=== PATIENT | male | born 1980 | race Caucasian/White ===

== ENCOUNTER 2022-07-27 14:21 | Emergency (ER) | payer SELFPAY ==
[2022-07-27] VITALS (10 sets, daily range): BP systolic 123–158; BP diastolic 70–89; PULSE 81–121; RESP 16–21; TEMP 36.8; O2SAT 94–99; BMI 27.1
--- NOTE | 2022-07-27 14:36 | XR_ITS ---
PROCEDURE INFORMATION: Exam: XR Chest Exam date and time: 07/27/2022 2:51 PM Age: 42 years old Clinical indication: Other: Altered mental status; Additional info: Ams- PT admits to taking synthetic cocaine TECHNIQUE: Imaging protocol: Radiologic exam of the chest. Views: 1 view. COMPARISON: No relevant prior studies available. FINDINGS: Lungs: Unremarkable. No consolidation. Pleural spaces: Unremarkable. No pleural effusion. No pneumothorax. Heart/Mediastinum: Unremarkable. No cardiomegaly. Bones/joints: Unremarkable. IMPRESSION: No acute findings.
--- NOTE | 2022-07-27 14:37 | HMH.EDGENADL ---
Discharge Plan Disposition Patient Disposition: Still a Patient Condition: Fair Chief Complaint: Medical Clearance Clinical Impressions Clinical Impression: Delirium due to methamphetamine intoxication, Medical clearance for incarceration Discharge ED Provider: Rony Lopes General Adult HPI <John Obrien MD - Last Filed: 07/27/22 20:35> General Chief complaint: Medical Clearance Stated complaint: medical clearance Time Seen by Provider: 07/27/22 14:25 History of Present Illness HPI narrative: Patient is brought in by police. They state that they picked him up at a car wash where he was beating up one of the vacuum machines. Patient is unable to give any further history himself as he arrives agitated, psychotic in appearance. He denies being on any prescription medications. Not cooperative with further history taking. He has not previously been at this facility. Related Data Allergies Allergy/AdvReac Type Severity Reaction Status Date / Time No Known Allergies Allergy Verified 07/27/22 14:44 PFSH <John Obrien MD - Last Filed: 07/27/22 20:35> PFSH Social History Smoking Status: Unknown if ever smoked alcohol intake: current current occupational status: unemployed <John Obrien MD - Last Filed: 07/27/22 20:35> ROS Obtained: Yes unobtainable due to mental status Physical Exam <John Obrien MD - Last Filed: 07/27/22 20:35> General General appearance: alert and other Comment: Rapid, pressured speech. Hyperreligiosity. Making repetitive statements. Appears hyperalert, agitated, restless and hyperactive. Diaphoretic. Head Head exam: atraumatic and normocephalic Eye Eye exam: Present PERRL and EOMI ENT ENT exam: Present mucous membranes moist Neck Neck exam: Present normal inspection, full ROM and trachea midline; Absent meningismus Chest Chest inspection: Present normal inspection and symmetric chest wall rise Respiratory Respiratory exam: Present normal lung sounds bilaterally; Absent respiratory distress Cardiovascular Cardiovascular exam: Present normal rhythm, tachycardia and normal heart sounds Abdominal Exam Abdominal exam: Present soft; Absent distention or tenderness Extremities Exam Extremities exam: Present other (No track corado seen) Back Exam Back exam: Present normal inspection Neurological Exam Neurological exam: Present alert and CN II-XII intact; Absent motor sensory deficit Psychiatric Psychiatric exam: Present agitated and anxious Skin Skin exam: Present warm and diaphoresis Medical Decision Making <John Obrien MD - Last Filed: 07/27/22 20:35> Cleve Inquiry Pt receiving controlled substance: Yes Cleve was queried for this patient: Yes Risks and benefits of using a controlled substance: were not discussed with pt by me Vital Signs: 07/27/22 14:30 07/27/22 15:00 07/27/22 15:30 Temperature 98.2 F Temperature Source Oral Pulse Rate 101 H 104 H Pulse Rate [Left Radial] 121 H Respiratory Rate 17 18 18 Blood Pressure 158/70 H 130/72 Blood Pressure [Right Arm] 158/80 H Blood Pressure Mean 99 83 Blood Pressure Mean [Right Arm] 106 02 Sat by Pulse Oximetry 99 95 98 Oxygen Delivery Method Room Air 07/27/22 16:00 07/27/22 16:30 07/27/22 17:00 Temperature Temperature Source Pulse Rate 89 89 88 Pulse Rate [Left Radial] Respiratory Rate 16 16 16 Blood Pressure 129/73 123/79 136/74 Blood Pressure [Right Arm] Blood Pressure Mean 91 89 89 Blood Pressure Mean [Right Arm] 02 Sat by Pulse Oximetry 97 98 99 Oxygen Delivery Method 07/27/22 17:30 07/27/22 18:00 07/27/22 18:30 Temperature Temperature Source Pulse Rate 92 H 94 H 86 Pulse Rate [Left Radial] Respiratory Rate 18 17 21 Blood Pressure 137/89 132/83 132/83 Blood Pressure [Right Arm] Blood Pressure Mean 101 93 Blood Pressure Mean [Right Arm] 02 Sat by Pulse Oximetry 98 99 94 L Oxygen Delivery Method Lab Data Lab Results
[2022-07-27 14:42] LABS: Basophils # 0.1 K/mm3 (0-0.2); Basophils % 0.9 % (0.1-2.0); Eosinophils # 0.1 K/mm3 (0.0-0.4); Eosinophils % 1.4 % (0.1-12.0); Hematocrit 43.7 % (42.0-52.0); Hemoglobin 14.5 g/dL (14.1-18.0); Lymphocytes # 2.7 K/mm3 (0.7-4.5); Lymphocytes % 32.1 % (10-50); Mean Corpuscular HGB Conc 33.1 g/dL (31.8-35.4); Mean Corpuscular Hemoglobin 29.8 pg (27.0-31.2); Mean Corpuscular Volume 90.1 fl (80-94); Mean Platelet Volume 8.1 fl (7.4-10.4); Monocytes # 0.6 K/mm3 (0.1-1.0); Monocytes % 6.7 % (1.7-9.3); Neutrophils % 58.9 % (37.0-80.0); Platelet Count 332 K/mm3 (142-424); Red Blood Count 4.85 M/mm3 (4.60-6.20); White Blood Count 8.5 K/mm3 (4.8-10.8)
[2022-07-27 14:46] LABS: Ethyl Alcohol < 10 mg/dl (0-10)
[2022-07-27 14:47] LABS: Acetaminophen < 10 ug/ml (10-30); Alanine Aminotransferase 62 U/L (12-78); Albumin Level 4.1 g/dl (3.5-5.0); Albumin/Globulin Ratio 1.4 (1.1-1.8); Alkaline Phosphatase 77 U/L (38-126); Anion Gap 14.7 mEq/L (5-15); Aspartate Amino Transferase 62 U/L (17-59); Bilirubin,Total 0.2 mg/dl (0.2-1.3); Blood Urea Nitrogen 11 mg/dl (9-20); Calcium 9.1 mg/dl (8.4-10.2); Carbon Dioxide 24 mmol/L (22.0-30.0); Chloride 110 mmol/L (98-107); Creatine Kinase 219 U/L (55-170); Estimated Glomerular Filt Rate 74 ml/min (>60); GFR (African American) 90 ML/MIN (>60); Globulin 2.9 g/dL (1.3-3.2); Glucose 130 mg/dl (74-100); Potassium 3.7 mmoL/L (3.5-5.1); Salicylate < 1.0 mg/dL (2.0-20.0); Sodium 145 mmol/L (136-145)
[2022-07-27 14:59] LABS: CKMB Relative Index 0.5 U/L (0-4.0); Creatine Kinase MB 1.1 ng/ml (0.0-2.03)
--- NOTE | 2022-07-27 15:00 | PC.NURSE ---
pt medicated per MAR
[2022-07-27 15:01] LABS: Troponin I < 0.01 ng/ml (0.00-0.034)
--- NOTE | 2022-07-27 16:19 | PC.NURSE ---
rounded on pt at this time. pd at the bedside. pt resting in bed
--- NOTE | 2022-07-27 16:23 | PC.NURSE ---
ekg obtained and covid swab sent to the lab
--- NOTE | 2022-07-27 16:25 | ECG_ITS ---
APPROVED REPORT Exam: Resting ECG HR:83 bpm ECG Measurements Heart Rate 83 AXES HI 127 P 26 QRSd 106 QRS 83 QT 362 T 73 QTc 402 Conclusion SINUS RHYTHM NORMAL ECG UNCONFIRMED REPORT Electronically signed by : Juan Queen MD 07/28/2022 20:10:48
[2022-07-27 16:29] LABS: Coronavirus 19, PCR Not Detected (NotDetected); Influenza A, PCR Not Detected (NotDetected); Influenza B, PCR Not Detected (NotDetected)
--- NOTE | 2022-07-27 17:29 | PC.NURSE ---
urinal taken to pt to try and provide a us sample
--- NOTE | 2022-07-27 18:25 | PC.NURSE ---
ua sent to the lab
[2022-07-27 18:44] LABS: Benzodiazepines Screen,Urine Negative ng/ml (<200)
[2022-07-27 18:45] LABS: Barbiturates Screen,Urine Negative ng/ml (<200)
[2022-07-27 18:46] LABS: Cannabinoid Screen,Urine Negative ng/ml (<50)
[2022-07-27 18:47] LABS: Cocaine Screen,Urine Negative ng/ml (<300); Methadone Screen,Urine Negative ng/ml (<300)
[2022-07-27 18:48] LABS: Opiate Screen,Urine Negative ng/ml (<300); Phencyclidine Screen,Urine Negative ng/ml (<25)
[2022-07-27 18:54] LABS: Amphetamine/Metha Screen,Urine Positive ng/ml (<1000)
== END 2022-07-27 22:19 | disposition still patient (30) ==
PROVIDERS: Emergency Medicine; Emergency Provider Emergency Medicine
DX: F15.921 Other stimulant use, unspecified with intoxication delirium (principal); R41.82 Altered mental status, unspecified; Z20.822 Contact with and (suspected) exposure to COVID-19
CPT/HCPCS: 71045; 80053; 80305; 80329; 82550; 82553; 84484; 85025; 93005; 96361; 96374; 96375; 99285; C9803; U0003; U0005